=== PATIENT | female | born 1985 | race Caucasian/White ===

== ENCOUNTER 2016-12-28 12:24 | Emergency (ER) | payer OTHER ==
[2016-12-28 12:28] VITALS: BMI 42.5
[2016-12-28 12:31] VITALS: RESP 18; O2SAT 98
[2016-12-28 13:25] LABS: RBC URINE 2 /hpf (0-3); URINE BILIRUBIN NEGATIVE (NEGATIVE); URINE BLOOD NEGATIVE (NEGATIVE); URINE COLOR Yellow (YELLOW); URINE GLUCOSE (UA) NORMAL (Normal); URINE KETONE TRACE mg/dL (NEGATIVE); URINE LEUKOCYTE ESTERASE TRACE Leu/uL (Negative); URINE PROTEIN NEGATIVE (NEGATIVE); URINE UROBILINOGEN NORMAL mg/dL (0.2-1.0); WBC URINE 2 /hpf (0-5)
--- NOTE | 2016-12-28 13:43 | C.PDOC ---
History Of Present Illness Patient is a 31 y/o female that presents to the ED for evaluation of nausea for the past 2 weeks. Patient also reports cough for the last 3 days. Patient notes abdominal discomfort, and pressure every time she coughs. Patient states she missed her last menstrual period. Otherwise, denies any fever, chills, vomiting, diarrhea, vaginal bleeding, urinary symptoms, or any other related symptoms at this time. Time Seen by Provider: 12/28/16 12:45 Chief Complaint (Nursing): GI Problem History Per: Patient History/Exam Limitations: no limitations Onset/Duration Of Symptoms: Days (2 weeks) Current Symptoms Are (Timing): Still Present Radiation Of Pain To:: None Quality Of Discomfort: Pressure Associated Symptoms: Nausea. denies: Fever, Chills, Vomiting, Diarrhea, Loss Of Appetite, Back Pain, Chest Pain, Constipation, Urinary Symptoms Exacerbating Factors: Cough Recent travel outside of the [place]: No Additional History Per: Patient Abnormal Vaginal Bleeding: No Past Medical History Reviewed: Historical Data, Nursing Documentation, Vital Signs Vital Signs: Last Vital Signs Temp 98.5 F 12/28/16 12:29 Pulse 74 12/28/16 12:29 Resp 18 12/28/16 12:29 BP 131/79 12/28/16 12:29 Pulse Ox 98 12/28/16 13:50 - Medical History PMH: Asthma, Diverticulitis Denies: Chronic Kidney Disease - [facility] Procedures EXCISION OF RIGHT LOWER LEG SKIN, EXTERNAL APPROACH (05/28/16) Family History: States: Unknown Family Hx - Social History Hx Tobacco Use: No Hx Alcohol Use: No Hx Substance Use: No - Immunization History Hx Tetanus Toxoid Vaccination: No Hx Influenza Vaccination: No Hx Pneumococcal Vaccination: No Review Of Systems Except As Marked, All Systems Reviewed And Found Negative. Constitutional: Negative for: Fever, Chills Cardiovascular: Negative for: Chest Pain, Palpitations Respiratory: Negative for: Shortness of Breath Gastrointestinal: Positive for: Nausea, Abdominal Pain (only when coughing). Negative for: Vomiting, Diarrhea, Constipation Genitourinary: Negative for: Dysuria, Frequency, Incontinence, Hematuria, Vaginal Discharge, Vaginal Bleeding Musculoskeletal: Negative for: Back Pain Physical Exam - Physical Exam Appears: Non-toxic, No Acute Distress Skin: Normal Color, Warm, Dry Head: Atraumatic, Normacephalic Eye(s): bilateral: Normal Inspection, EOMI Neck: Normal ROM, Supple Chest: Symmetrical Cardiovascular: Rhythm Regular Respiratory: Normal Breath Sounds, No Rales, No Rhonchi, No Wheezing Gastrointestinal/Abdominal: Soft, No Tenderness, No Guarding, No Rebound Back: No CVA Tenderness Neurological/Psych: Oriented x3, Normal Speech, Normal Cognition ED Course And Treatment O2 Sat by Pulse Oximetry: 98 (on RA) Pulse Ox Interpretation: Normal Progress Note: Urinalysis, preg test ordered and reviewed. Disposition Counseled Patient/Family Regarding: Diagnosis, Need For Followup - Disposition Disposition: HOME/ ROUTINE Disposition Time: 13:49 Condition: STABLE Additional Instructions: Your urine test was positive for Please follow up with your screw machine operator for further evaluation Instructions: (ED) - POA Present On Arrival: None - Clinical Impression Clinical Impression: URI (upper respiratory infection), Positive test - PA / AGENCY APPOINTMENTS SUPERVISOR / Resident Statement MD/DO has reviewed & agrees with the documentation as recorded. - Scribe Statement The provider has reviewed the documentation as recorded by the Claudiaibjerson Castillo All medical record entries made by the Claudiaibjerson were at my direction and personally dictated by me. I have reviewed the chart and agree that the record accurately reflects my personal performance of the history, physical exam, medical decision making, and the department course for this patient. I have also personally directed, reviewed, and agree with the discharge instructions and disposition.
--- NOTE | 2016-12-28 14:00 | C.PDOC ---
History Of Present Illness Patient is a 31 y/o female that presents to the ED for evaluation of nonproductive cough for the last 3 days. Patient also reports abdominal discomfort and pressure every time she coughs. Patient states she missed her last menstrual period. Reports nausea for the past 2 weeks. Otherwise, denies any fever, chills, vomiting, diarrhea, vaginal bleeding, urinary symptoms, or any other related symptoms at this time. Time Seen by Provider: 12/28/16 12:45 Chief Complaint (Nursing): GI Problem History Per: Patient History/Exam Limitations: no limitations Onset/Duration Of Symptoms: Days (2 weeks) Current Symptoms Are (Timing): Still Present Location Of Pain: None Sick Contacts (Context): None Associated Symptoms: Cough, Nausea. denies: Fever, Chills, Sore Throat, Sputum , Neck Pain, Sinus Drainage, Myalgias, Nasal Congestion, Vomiting, Diarrhea Ear Symptoms: Bilateral: None Recent travel outside of the [place]: No Additional History Per: Patient Past Medical History Reviewed: Historical Data, Nursing Documentation, Vital Signs Vital Signs: Last Vital Signs Temp 98 F 12/28/16 14:09 Pulse 19 L 12/28/16 14:09 Resp 18 12/28/16 14:09 BP 140/62 12/28/16 14:09 Pulse Ox 98 12/28/16 14:09 - Medical History PMH: Asthma, Diverticulitis Denies: Chronic Kidney Disease - [facility] Procedures EXCISION OF RIGHT LOWER LEG SKIN, EXTERNAL APPROACH (05/28/16) Family History: States: Unknown Family Hx - Social History Hx Tobacco Use: No Hx Alcohol Use: No Hx Substance Use: No - Immunization History Hx Tetanus Toxoid Vaccination: No Hx Influenza Vaccination: No Hx Pneumococcal Vaccination: No Review Of Systems Constitutional: Negative for: Fever, Chills, Weakness, Malaise ENT: Negative for: Nose Congestion, Throat Pain Cardiovascular: Negative for: Chest Pain, Palpitations Respiratory: Positive for: Cough. Negative for: Shortness of Breath, Sputum Gastrointestinal: Positive for: Nausea. Negative for: Vomiting, Diarrhea, Constipation Genitourinary: Negative for: Dysuria, Frequency, Incontinence, Hematuria, Vaginal Discharge, Vaginal Bleeding, Pelvic Pain Musculoskeletal: Negative for: Back Pain Skin: Negative for: Rash Neurological: Negative for: Headache, Dizziness Physical Exam - Physical Exam Appears: Well, Non-toxic, No Acute Distress Skin: Normal Color, Warm, Dry Head: Atraumatic, Normacephalic Eye(s): bilateral: Normal Inspection, EOMI Oral Mucosa: Moist Neck: Normal ROM, Supple Chest: Symmetrical Cardiovascular: Rhythm Regular Respiratory: Normal Breath Sounds, No Rales, No Rhonchi, No Wheezing Gastrointestinal/Abdominal: Soft, No Tenderness, No Distention, No Guarding, No Rebound Back: Normal Inspection, No CVA Tenderness Extremity: Bilateral: Atraumatic, Normal ROM Neurological/Psych: Oriented x3, Normal Speech Gait: Steady ED Course And Treatment O2 Sat by Pulse Oximetry: 98 (on RA) Pulse Ox Interpretation: Normal Progress Note: Urinalysis, preg test ordered and reviewed. test was positive. Inform patient of results. She remains afebrile and in no acute distress. Advise follow up with ob.consulting group analyst. Disposition - Disposition Disposition: HOME/ ROUTINE Disposition Time: 13:49 Condition: STABLE Additional Instructions: Your urine test was positive for Please follow up with your in home sales consultant for further evaluation Instructions: (ED) - POA Present On Arrival: None - Clinical Impression Clinical Impression: URI (upper respiratory infection), Positive test - PA / SPRING TESTER / Resident Statement MD/DO has reviewed & agrees with the documentation as recorded. - Scribe Statement The provider has reviewed the documentation as recorded by the Scribjerson Castillo All medical record entries made by the Claudiaibjerson were at my direction and personally dictated by me. I have reviewed the chart and agree that the record accurately reflects my personal performance of the history, physical exam, medical decision making, and the department course for this patient. I have also personally directed, reviewed, and agree with the discharge instructions and disposition.
[2016-12-28 14:11] VITALS: BP 140/62; PULSE 19; TEMP 98
== END 2016-12-28 14:10 | disposition home or self-care (01) ==
LOC: C.ER 12:24
DX: J06.9 Acute upper respiratory infection, unspecified (principal); Z33.1 Pregnant state, incidental

== ENCOUNTER 2017-07-31 03:06 | Inpatient (IN) | payer OTHER ==
[2017-07-31 03:12] VITALS: BMI 44.6
[2017-07-31] MEDS ORDERED: Penicillin G 5 Million Unit Vial IVPB ONE ×2 (03:19→04:11)
[2017-07-31] MEDS ORDERED: Lactated Ringer's 1,000 ML IV SCH (03:30)
--- NOTE | 2017-07-31 03:47 | OBHP ---
Datetime: 07/31/2017 03:26 IP Adm Impression: Term, intrauterine ; Intact Membranes IP Chief Complaint Other: GBS (+) IP Admit Plan: Admit to unit; Initiate labor protocol Admit Comment, IP Provider: 32 y.o. , LMP 10/26/16, BLAZE 08/02/17, EGA 39w 5d by sono 01/09/17 at 11w 1d c/o LBP all day 07/30, and worsening LAP since 0200 hours, pain scale 6/10 to 7/10. (+) AFM ; denies LOF, VB. care: [facility]: 1) grand multip; 2) Rh (-) - received Rhogam 05/25/17; 3) abnormal GCT 154; normal 3 hr GTT 73/127/102/84; 5) GBS (+); 6) obesity P Ob: x 5: 2003, male, 6lb 12 oz, [facility]. 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 last attack 2005; never intubated PSH: D_C x 1; 2016, I7D infected insect bite; hospitalized x 2 weeks. NKDA Meds: PNV - QD Soc Hx: denies tobacco, illicit julius Etoh use. x 5 years; with FOB x 11 years. Unemployed Fam Hx: Mother alive 56 y.o. no med issues. Father alive 60 y.o. h/o asthma. No known fam h/o can cer P.E.: as above. Obese, in NAD; appears uncomfortable. Awake, alert, oriented to time, person and p lace. Accompanied by Assessment: 29 y.o. P5015, 39w 5d, early labor. GBS (+) - for penicillin. Rh(-) S/P Rhogam in ante . ategory 1 tracing. Clinically stable. Plan: 1) Admit 2) NPO 3) IVFs 4) Contnuous EFM 5) Admission labs 6) Consider pitocin augmentaiton 7) Anticipate vaginal delivery Pelvic Type - PN: Adequate Extremities - PN: Normal Abdomen - PN: Normal Back - PN: Normal Breast - PN: Not Done Lungs - PN: Normal Heart - PN: Normal Thyroid - PN: Not Done Neurologic - PN: Normal HEENT - PN: Normal General - PN: Normal Presentation-Admit: Vertex Membranes, Provider: Intact Contraction Comments Provider: irregular Comments, ACOG Physical Exam: Abdomen: Obese. Gravid. Soft. NOn tender. All other systems reviewed and are negative Gestation - Est Wks by US: 39w 5d IP Hx Assessment: The History has been Reviewed and is Current EGA AdmitDate IP: 39.5 Vital Signs Provider: Reviewed; Within Normal Limits IP Indication for Induction: Not Applicable IP Chief Complaint: Uterine contractions; Maternal discomfort NICHD Variability Prov Fetus A: Moderate 6-25bpm NICHD Accel Fetus A IP Provider: 10X10 FHR Category Provider Fetus A: Category I NICHD Decel Fetus A IP Provider: None Dilatation, Provider: 3 Effacement, Provider: 40 Station, Provider: -3 Genitourinary Exam: Normal DTRs - PN: Not Done
[2017-07-31] MEDS ORDERED: Oxytocin 30 UNIT 30 UNITS/500 ML BAG IV PRN (04:02)
[2017-07-31] MEDS: Lactated Ringer's 1,000 ML IV SCH ×2 (04:24→12:20)
[2017-07-31] MEDS ORDERED: Dextrose 5%/Lactated Ringer's 1,000 ML IV SCH (04:30)
[2017-07-31 04:37] LABS: BASO % 0.4 % (0.0-2.0); EOS # 0.1 K/uL (0.0-0.7); EOS % 1.2 % (0.0-4.0); HEMATOCRIT 35.5 % (34.0-47.0); LYMPH # 3.5 K/uL (1.0-4.3); LYMPH % 30.4 % (20.0-40.0); MEAN CELL VOLUME 87.3 fL (81.0-99.0); MEAN CORPUSCULAR HEMOGLOBIN 28.9 pg (27.0-31.0); MEAN CORPUSCULAR HGB CONC 33.1 g/dL (33.0-37.0); MEAN PLATELET VOLUME 10.6 fL (7.2-11.7); MONO # 0.7 K/uL (0.0-0.8); MONO % 6.5 % (0.0-10.0); RED CELL DISTRIBUTION WIDTH 15.4 % (11.5-14.5); WHITE BLOOD COUNT 11.4 K/uL (4.8-10.8)
[2017-07-31 04:51] LABS: RBC URINE 1 /hpf (0-3); URINE BILIRUBIN NEGATIVE (NEGATIVE); URINE BLOOD NEGATIVE (NEGATIVE); URINE COLOR Straw (YELLOW); URINE GLUCOSE (UA) NORMAL (Normal); URINE KETONE NEGATIVE (NEGATIVE); URINE LEUKOCYTE ESTERASE NEG Leu/uL (Negative); URINE PROTEIN NEGATIVE (NEGATIVE); URINE UROBILINOGEN NORMAL mg/dL (0.2-1.0); WBC URINE 1 /hpf (0-5)
[2017-07-31] MEDS ORDERED: Oxytocin 30 UNIT 30 UNITS/500 ML BAG IV ONE (04:53)
[2017-07-31 04:54] LABS: CHLORIDE 104 mmol/L (98-107)
[2017-07-31 04:55] LABS: POTASSIUM 3.9 mmol/L (3.6-5.2); SODIUM 134 mmol/L (132-148)
[2017-07-31 04:57] LABS: ALKALINE PHOSPHATASE 131 U/L (38-126); ALT/SGPT 36 U/L (9-52); AST/SGOT 22 U/L (14-36); BILIRUBIN,TOTAL 0.3 mg/dL (0.2-1.3); BLOOD UREA NITROGEN 6 mg/dL (7-17); CARBON DIOXIDE 21 mmol/L (22-30); GFR AFRICAN-AMERICAN > 60; TOTAL PROTEIN 7.5 g/dL (6.3-8.3)
[2017-07-31 04:58] LABS: CALCIUM 9.1 mg/dl (8.6-10.4); GLUCOSE,RANDOM 73 mg/dL (65-105)
[2017-07-31 05:12] LABS: ALB/GLOB RATIO 0.9 (1.0-2.1)
[2017-07-31] MEDS ORDERED: Bupivacaine 0.125%/FentaNYL 200 ML EPI ONE (08:27)
[2017-07-31] MEDS ORDERED: Propofol 10 mg/ml Inj (20 ML) ONE (08:50)
--- NOTE | 2017-07-31 12:32 | OBPN ---
Datetime: 07/31/2017 12:22 IP Progress Impression: Normal progression of labor; Reactive non-stress test; Rupture of membranes IP Informed Consent Obtain: Vaginal Delivery IP Procedures: Intrauterine Pressure Catheter; Scalp Electrode; Sterile Vag Exam IP Progress Plan: Continue present management Membranes, Provider: Ruptured FHR - Baseline A Provider: 160 Gestation - Est Wks by US: 39.5 Presentation-Admit: Vertex IP Progress Note Comment: IUP at 39+ wks in active Labor S/p Epidural anesthesia On Pitocin for labor augmentation. Poor uterine tracing of contractiomns IUPC inserted with scalp electrode. Plan: Continue labor monitoring. Vital Signs Provider: Reviewed NICHD Accel Fetus A IP Provider: 15X15 FHR Category Provider Fetus A: Category I NICHD Variability Prov Fetus A: Moderate 6-25bpm Dilatation, Provider: 3-4 Effacement, Provider: 50 Station, Provider: -3 NICHD Decel Fetus A IP Provider: None Datetime: 07/31/2017 03:26 Contraction Comments Provider: irregular
--- NOTE | 2017-07-31 14:01 | OBDS ---
MATERNAL INFORMATION Provider Comments: Uncomplicated spontaneous vaginal delivery of a viable female infant with BW of 8 IBs 2 oz and scores of 9 and 9. EBL- 200mls No Vaginal Laceration. LABOR SUMMARY EDC: 08/02/2017 00:00 No. Babies in Womb: 1 LABOR INFORMATION Onset of Labor: 07/31/2017 02:20 Group B Beta Strep: Positive MEMBRANES Membranes Rupture Method: Spontaneous Amniotic Fluid Color: Clear Amniotic Fluid Amount: Small Amniotic Fluid Odor: None PRESENTATION/POSITION BABY A Presentation: Cephalic IDENTIFICATION/MEDS BABY A ID Band Number: [id number] Sensor Number: [id number]
[2017-07-31] MEDS ORDERED: Oxycodone/Acetaminophen 5/325 mg Tab PO PRN ×2 (16:27)
--- NOTE | 2017-07-31 16:37 | OBDS ---
Delivery Doctor: Erwin Centeno MD Controller Mechanic: Yasmin Tapia RN Anesthesiologist: Latasha Arora MD Resident: Dr Castro Delivery Anesthesia: Epidural Maternal Complications: None Labor Anesthesia: Epidural Complete Dilatation: 07/31/2017 15:58 Oxytocin: Augmentation Antibiotics # of Doses: 3 Antibiotics Time of Last Dose: 1215 Reason Steroids Not Administered: Not Applicable Membranes Rupture Method: Spontaneous Rupture of Membranes: 07/31/2017 10:10 Length of Rupture (hrs): 6.07 Amniotic Fluid Color: Clear Amniotic Fluid Amount: Small Amniotic Fluid Odor: None Stage 1 hrs: 13 Stage 1 min: 38 Stage 2 hrs: 0 Stage 2 min: 16 Stage 3 hrs: 0 Stage 3 min: 6 Total Time in Labor hrs: 14 Total Time in Labor min: 0 Sponge Count Correct: Yes Infant Delivery Date/Time: 07/31/2017 16:14 Method of Delivery: Vaginal Born in Route : Yes : N/A Forceps: N/A Vacuum Extraction: N/A Shoulder Dystocia : No Infant Delivery Date/Time: 07/31/2017 16:14 Cephalic Presentation: Vertex Vertex Position: Left Occipital Anterior Breech Presentation: N/A Placenta Delivery Time : 07/31/2017 16:20 Placenta Method of Delivery: Spontaneous Placenta Status: Delivered Heart Rate 1 min: >100 bpm Resp Effort 1 min: Good Cry Reflex Irritability 1 min: Cough or Sneeze or Pulls Away Muscle Tone 1 min: Active Motion Color 1 min: Body Laureles, Extremities Blue SCORE 1 MIN: 9 Heart Rate 5 min: >100 bpm Resp Effort 5 min: Good Cry Reflex Irritability 5 min: Cough or Sneeze or Pulls Away Muscle Tone 5 min: Active Motion Color 5 min: Body Laureles, Extremities Blue SCORE 5 MIN: 9 Gestational Age at Delivery: 39.5 Gestational Status: Term Infant Outcome : Liveborn Condition : Stable Sex: Female ID Band Location: Left Leg; Left Arm Sensor Applied: Yes Sensor Location : Cord Clamp Vitamin K Given : Aquamephyton 0.5 mg IM Erythromycin Given: Given Both Eyes Birthweight (gms): 3150 Weight (lb): 6 Infant Weight (oz): 15 Length Inches: 19.00 Infant Length cms: 48.3 No. Cord Vessels: 3 Nuchal Cord : N/A Suction: None; Mouth Complications: None Physical Findings at Delivery: Within Normal Limits Infant Respirations: Appears Normal Physician Assistant Surgery/ALS Called : No Infant Care By: Amy Le Transferred To: Remains with Mother
[2017-08-01 08:13] LABS: HEMATOCRIT 34.1 % (34.0-47.0); MEAN CELL VOLUME 87.2 fL (81.0-99.0); MEAN CORPUSCULAR HEMOGLOBIN 29.3 pg (27.0-31.0); MEAN CORPUSCULAR HGB CONC 33.6 g/dL (33.0-37.0); MEAN PLATELET VOLUME 10.7 fL (7.2-11.7); RED CELL DISTRIBUTION WIDTH 15.8 % (11.5-14.5); WHITE BLOOD COUNT 14.6 K/uL (4.8-10.8)
--- NOTE | 2017-08-01 09:05 | OBPPN ---
Datetime: 08/01/2017 08:57 PP Pain Prov: Within normal limits PP Nausea Prov: Denies PP Flatus Prov: Yes PP BM Prov: No PP Breasts Prov: Normal PP Heart Prov: Normal PP Lungs Prov: Normal PP Abdomen/Uterus Prov: Normal PP Lochia Prov: Normal PP Vulva/Perineum Prov: Normal PP CVA Tenderness Prov: Normal PP Extremities Prov: Normal PP C/S Incision Prov: Not Applicable PP Progress Prov: Normal PP Comments Phys Exam Prov: Abdomen: Soft. Non distended; mildly obese. Fundus firm, mobile, non ten lorena - 2 FB below umbilicus. Mild lochia rubra. Extremities: 1+ lower extremity edema bilaterally. No calf tenderness bilaterally All other systems revieed and are negative PP Impression Prov: Normal progression PP Plan Prov: Continue present management PP Progress Note Prov: Patient received in bed in room 451. exclusively . Denies hea daches, dizziness. P.E.: as above. WD in NAD. Awake, alert, oriented to time, person and place. Pleasant and coop erative - PPD#1 H/H 11.5/34.1 Rh(-) Assessmnet: PPD#1 32 y.o. P6016, S/P . Afebrile, vital signs stable. Rh negative; is R h positive - for Rhogam. Clinically stable. Plan: 1) Rhogam 2) Continue present management 3) Anticipate discharge home 08/02/17 Vital Signs Provider PP: Reviewed; Within Normal Limits
[2017-08-01] MEDS ORDERED: Influenza Vaccine 60 mcg/0.5 mL SYR (4YR UP) IM ONE (10:00)
[2017-08-02 08:34] VITALS: BP 114/78; PULSE 77; RESP 18; TEMP 97.7; O2SAT 99
--- NOTE | 2017-08-02 09:37 | OBPPN ---
Datetime: 08/02/2017 09:30 PP Pain Prov: Within normal limits PP Nausea Prov: Denies PP Flatus Prov: Yes PP BM Prov: Yes PP Breasts Prov: Normal PP Heart Prov: Normal PP Lungs Prov: Normal PP Abdomen/Uterus Prov: Normal PP Lochia Prov: Normal PP Vulva/Perineum Prov: Not Done PP CVA Tenderness Prov: Normal PP Extremities Prov: Normal PP C/S Incision Prov: Not Applicable PP Progress Prov: Normal PP Comments Phys Exam Prov: Abdomen: Obese. Soft. Non distended. Fundus firm, mobile, non tender, 18 weeks. minimal lochia rubra. Extremities: bilateral edema of lower extremities. All other systems reviewed and are negative PP Impression Prov: Normal progression PP Plan Prov: Discharge PP Progress Note Prov: Patient received in bed in room 451, exclusively. Denies nausea , vomiting. Ambulating and voiding without difficulty P.E.: as above. MIldly obese in NAD. Awake, alert, oriented to time, person and place. Pleasant and coperative Assessment: PPD#2, 32 y.o. P6016, S/P . Afebrile. Vital signs stables. Rh negative; S/P Rhoga m 08/01/17. Interested in IUD for contraception. Clinically stable. Plan: 1) Discharge home 2) SEe full discharge instructions Vital Signs Provider PP: Reviewed; Within Normal Limits
--- NOTE | 2017-08-02 09:39 | OBDCSUM ---
Datetime: 08/02/2017 08:09 Discharged to, Provider: Home Follow up at, Provider: [facility]E Disch Instr Activity: Normal activity Disch Instr Diet: Regular Discharge Diet restrict Prov: none Discharge Instructions, Provider: Routine instructions given Discharge Diagnosis, Provider: Term Delivered Discharge Time: 08/02/2017 10:00 Follow up in weeks, Provider: 6 weeks Disch Referrals: None Contraception discussed, Prov: Yes Disch Activity Restrictions: No exercising; No sexual activity; Nothing in vagina - [place], ramya costello Discharge Diagnosis Prov Other: Grand multiparity Contraception counseling Contraception after Delivery: IUD
== END 2017-08-02 11:45 | disposition home or self-care (01) | DRG 373 ==
LOC: C.EROB 03:06 → C.4D 03:19 → C.4M 18:45
PROVIDERS: ADMIT Obstetrics & Gynecology; ATTEND Obstetrics & Gynecology
PROC: 10E0XZZ Delivery of Products of Conception, External Approach (ICD-10-PCS; principal; 2017-07-31)
PROC: 0UH97HZ Insertion of Contraceptive Device into Uterus, Via Natural or Artificial Opening (ICD-10-PCS; 2017-07-31)
DX: O36.0930 Maternal care for other rhesus isoimmunization, third trimester, not applicable or unspecified (principal); O99.824 Streptococcus B carrier state complicating childbirth; Z3A.39 39 weeks gestation of pregnancy; Z37.0 Single live birth; Z30.430 Encounter for insertion of intrauterine contraceptive device